=== PATIENT | female | born 1960 | race Two or more races ===

== ENCOUNTER → 2024-10-16 | Outpatient (CLI) | payer MEDICAID, SELFPAY ==
--- NOTE | 2024-10-16 14:00 | XR_ITS ---
Examination: Bone densitometry Date and time of exam:October 16, 2024 1421 hours INDICATIONS: Postmenopausal, family history, mother spine fracture Technique: Lumbar spine and hip total bone mineralization values of an calculated. Peak reference and age match control results have been displayed. Findings: Lumbar spine total bone mineralization is0.719 gm/cm2. This is 3.0 standard deviations below peak reference. This is 1.2 standard deviations below age-matched controls. Hip total bone mineralization is 0.760 gm/cm2 This is 1.5 standard deviations below peak reference. This is 0.2 standard deviations below age-matched controls Impression: There is osteoporosis based on lumbar spine measurements. There is osteopenia based on hip measurements
== END | disposition home or self-care (01) ==
LOC: CDIM 13:52
DX: Z13.820 Encounter for screening for osteoporosis (principal); M81.0 Age-related osteoporosis without current pathological fracture; M85.80 Other specified disorders of bone density and structure, unspecified site
CPT/HCPCS: 77080

== ENCOUNTER → 2025-01-23 | Outpatient (CLI) | payer MEDICAID, SELFPAY ==
--- NOTE | 2025-01-23 16:15 | XR_ITS ---
EXAMINATION: Ultrasound soft tissue right hand TECHNIQUE: Grayscale sonographic images soft tissue right hand Date and time: January 23, 2025 1553 hours INDICATIONS: Right hand middle finger pain and swelling for months. FINDINGS: No cystic or solid mass noted at the area of concern IMPRESSION: No cystic or solid mass noted at the area of concern, consider MRI hand without contrast follow-up
== END | disposition home or self-care (01) ==
DX: G56.01 Carpal tunnel syndrome, right upper limb (principal)
CPT/HCPCS: 76882